=== PATIENT | male | born 1975 | race Caucasian/White ===

== ENCOUNTER 2025-06-26 17:24 | Emergency (ER) | payer BC, SELFPAY ==
[2025-06-26 17:30] VITALS: BP 147/101
[2025-06-26 17:44] LABS: Hematocrit 43.5 % (39.0-52.0); Hemoglobin 15.2 g/dL (13.0-18.0); Mean Corp Hgb Conc. 34.9 g/dL (33.0-37.0); Mean Corpuscular Volume 88.2 fL (80.0-94.0); Nucleated Red Blood Cells % 0 % (-); Platelet Count 249 10^3/uL (130-400); Red Cell Dist. Width 11.7 % (11.5-14.5)
[2025-06-26 18:09] LABS: ALT (SGPT) 31 U/L (0-50); AST (SGOT) 22 U/L (17-59); Albumin 4.6 g/dl (3.5-5.0); Alkaline Phosphatase 60 U/L (38-126); Blood Urea Nitrogen 20 mg/dl (9-20); Calcium 9.7 mg/dl (8.4-10.2); Carbon Dioxide 27 mmol/L (22-30); Chloride 103 mmol/L (98-107); Glucose 102 mg/dl (70-99); Potassium 4.6 mmol/L (3.5-5.1); Sodium 140 mmol/L (135-145); Total Protein 7.5 g/dl (6.3-8.2); eGFR > 60.00
--- NOTE | 2025-06-26 19:17 | ED.GENMED ---
History of Present Illness
General
Chief Complaint: Anal/Rectal Problem
Source: patient
Exam Limitations: none
Time Seen by Provider: 06/26/25 19:02
History of Present Illness
History of Present Illness:
50yoM with a history of asthma presenting with his for evaluation of rectal pain. Symptoms have been ongoing for about a week and a half. He states he strained and felt a sharp pain in his rectal area. He then noticed a lump and swelling.
He was seen at urgent care last week and was started on a 5-day course of prednisone. He did notice some relief in pain while on the steroid. Last dose was yesterday. Symptoms became worse again today so he decided to come to the ED. He is able
to have bowel movements but is slightly constipated. He denies any fevers or chills. No rectal bleeding or drainage. No history of diabetes.
Past History
Past History
ED Past Medical History: Other ( Borderline Blood sugars, prostatitis, asthma)
Social History
Tobacco: Former smoker
Alcohol: Occasional
Family History
Family History: Diabetes
Phy Exam
General Physical Exam
General Presentation: well appearing and no apparent distress
General Skin: warm and dry
General Habitus: normal
General Mental: alert
ENT Exam
ENT Exam: normocephalic
Pulmonary Exam
Pulmonary Exam: no respiratory distress
Gastrointestinal Exam
Rectal Exam: other (Approx 4cm area of fluctuance, erythema, and tenderness to the L perirectal area. No signs of surrounding cellulitis. No crepitus or pain out of proportion. )
Neurological Exam
Neurological Exam: alert
Barling Coma Scale
Eye Opening: Spontaneous
Verbal Response: Oriented
Motor Response: Obeys Commands
GCS Total Score: 15
Skin Exam
Skin Exam: normal color and warm/dry
Psychiatric Exam
Psychiatric Exam: normal mood/affect
Course
Orders/Labs/Results
Orders:
Orders
06/26/25 17:37
CMP [Comprehensive Metabolic Panel] Urgent
Complete Blood Count/With Diff Urgent
06/26/25 19:15
HYDROmorphone [Dilaudid] 1 mg IV NOW STA
Ketorolac [Toradol] 15 mg IV NOW STA
06/26/25 20:02
Amoxicillin 875 mg/Clav 125 mg [Augmentin 875 mg/125 mg] 1 tablet PO NOW STA
Abnormal Lab Results
06/26/25
17:37
WBC 13.3 H 10^3/uL
(4.8-10.8)
Absolute Neuts (auto) 9.7 H 10^3/uL
(1.4-6.5)
Absolute Monos (auto) 1.4 H 10^3/uL
(0.1-0.6)
Lymphocytes % 15.0 L %
(20.5-51.1)
Monocytes % 10.2 H %
(1.7-9.3)
Glucose 102 H mg/dl
(70-99)
06/26/25 17:37
06/26/25 17:37
Vital Signs
Initial and Last Documented VS:
Initial Vital Signs
Temp Pulse Resp BP Pulse Ox
98.5 F 93 18 147/101 98
06/26/25 17:30 06/26/25 17:30 06/26/25 17:30 06/26/25 17:30 06/26/25 17:30
Last Documented Vital Signs
Temp Pulse Resp BP Pulse Ox
98.5 F 93 18 147/101 98
06/26/25 17:30 06/26/25 17:30 06/26/25 17:30 06/26/25 17:30 06/26/25 19:18
Procedures
Incision/Drainage/Joint Aspiration
Left Buttock:
Anethesia: 1% Lidocaine with Epi
Preparation: cleaned with Betadine
Type of procedure: incise and drain
Nature of site: abscess
Description of abscess: greater than 3cm
Loculations broken up: Yes
How much fluid was obtained?: large amount
Fluid description: purulent
Treatment: packed with gauze and antibiotics started
MDM/Problems Addressed
Differential Diagnosis Includes:
50yoM here with rectal pain and lump x 1.5 weeks. No f/c or systemic symptoms. He is mildly hypertensive which is likely related to pain. Vitals otherwise stable. There is an area of fluctuance to the L perirectal area consistent with an abscess. No
signs of surrounding cellulitis or NSTI.
Labs obtained in triage. White count is 13.3 which may be at least partially related to recent prednisone course. I&D performed at bedside and large amount of purulence drained. Packing placed. Patient tolerated well without immediate complication.
He was started on a course of Augmentin. He was advised to remove packing in 48 hours and f/u with PCP and colorectal surgery. ED return precautions reviewed and he was discharged in stable condition.
*Pulse Oximetry
SaO2: 98
Oxygen Mode of Delivery: Room air
Patient hypoxic: no (98%)
*Critical Care Note
Total Time (30-74mins, 75-104mins- exclusive of procedures): Not Applicable
ED Attending Note
-
Portions of this chart may have been created with voice recognition software.� Occasional wrong word or��sound alike� substitutions may have occurred due to the inherent limitations of voice recognition software.
Discharge Plan
Departure
Patient Disposition: Home (Routine Discharge)
Date of Disposition: 06/26/25
Time of Disposition: 20:03
Patient with high blood pressure during this ER visit?: Yes
Discharge Problem:
Perirectal abscess
Instructions: Abscess incision and drainage - ED discharge instructions
Prescriptions:
New
amoxicillin-pot clavulanate 875-125 mg tablet
1 tab PO BID Qty: 13 0RF
No Action
ciprofloxacin HCl [Cipro] 500 MG tablet
500 mg PO BID
Referrals:
Jj Irving MD [Active, ColoRectal]
Duong White DO [Family Provider, Internal Medicine]
Activity Restrictions/Additional Instructions:
Take antibiotics as prescribed. Remove packing in 48 hours.
Please follow-up with your family doctor and colorectal surgery. Return to the ER with any worsening symptoms including fevers or chills.
Interventions
Interventions:
*Risk Screen - Suicide Last Done: 06/26/25 17:30
*General Assessment Last Done: 06/26/25 17:30
*Neglect/Abuse Screening Last Done: 06/26/25 17:30
*ED- Fall Risk Assessment Last Done: 06/26/25 17:30
*ED COVID-19 Vaccine History Last Done: 06/26/25 17:30
*Nursing Disposition Last Done: 06/26/25 20:12
FE-Pmfktl-Kchirfqizo Assessment Last Done: 06/26/25 19:34
ED-Skin Assessment Last Done: 06/26/25 19:34
Discharge Date and Time
Discharge Date/Time: 06/26/25 20:15
Print Language: MALAWIAN
[2025-06-26] MEDS: TORADOL 15 MG IV (19:23)
[2025-06-26] MEDS: DILAUDID 1 MG IV (19:24)
[2025-06-26 19:26] VITALS: BMI 31.9
[2025-06-26] MEDS: AUGMENTIN 875 MG/125 MG 1 TABLET PO (20:09)
== END 2025-06-26 20:15 | disposition home or self-care (01) ==
LOC: EMR 17:24
PROVIDERS: Emergency Medicine; EMERGENCY PHYSICIAN Emergency Medicine; FAMILY PHYSICIAN Internal Medicine
DX: K61.1 Rectal abscess (principal); K59.00 Constipation, unspecified; N41.9 Inflammatory disease of prostate, unspecified; J45.909 Unspecified asthma, uncomplicated; Z83.3 Family history of diabetes mellitus; Z87.891 Personal history of nicotine dependence
CPT/HCPCS: 99283; 10060; 96374; 96375; 80053; 85025

== ENCOUNTER 2025-09-03 15:34 | Emergency (ER) | payer BC, SELFPAY ==
[2025-09-03 15:58] VITALS: BP 118/87
[2025-09-03 16:00] VITALS: BP 127/91
[2025-09-03 16:05] VITALS: BP 127/94
[2025-09-03 16:22] VITALS: BMI 33.9
[2025-09-03 16:31] LABS: Hematocrit 39.9 % (39.0-52.0); Hemoglobin 14.2 g/dL (13.0-18.0); Mean Corp Hgb Conc. 35.6 g/dL (33.0-37.0); Mean Corpuscular Volume 85.4 fL (80.0-94.0); Nucleated Red Blood Cells % 0 % (-); Platelet Count 189 10^3/uL (130-400); Red Cell Dist. Width 12.0 % (11.5-14.5)
--- NOTE | 2025-09-03 16:41 | ED.GENMED ---
History of Present Illness
General
Chief Complaint: Blood Pressure Problem
Source: patient
Exam Limitations: none
Time Seen by Provider: 09/03/25 16:06
Nursing documentation reviewed up to this point in time: agreed with
History of Present Illness
History of Present Illness:
50-year-old male presents to the ER for evaluation. Patient has had elevated blood pressure recently. He reports he is under a lot of stress. About a week and a half ago he had a sudden in the family. He reports he has felt that his blood
pressure has been elevated recently and he can physically feel the symptoms. He feels his ears getting hot and his face gets flushed. Prior to arrival he was at dermatology office and his face was flushed his blood pressure was elevated he was
recommended to come to the ER. He has checked his blood pressure recently and has been around 130s over 90s to 140s over 90s. Patient reports because of recent stress he has been drinking almost every night for the past 2 weeks beers and at times
shots. Patient reported 3 days ago he had chest tightness while lying in bed at nighttime. He was able to sleep with that and it resolved however he has felt intermittent chest tightness. Today while walking at work he did feel some shortness of
breath with going up the steps. He denies any headache blurry vision
He has a history of borderline high cholesterol however it is always been diet controlled.
He does report he had a stress test several years ago which was negative.
Past History
Past History
ED Past Medical History: Other ( Borderline Blood sugars, prostatitis, asthma)
Social History
Tobacco: Former smoker
Alcohol: Occasional
Family History
Family History: Diabetes
Phy Exam
General Physical Exam
General Presentation: no apparent distress
General age: appears stated age
General Skin: warm and dry
General Habitus: normal
General Mental: alert
General Hydration: appears well hydrated
Cardiovascular Exam
Cardiovascular Exam: regular rate/rhythm, no murmur and normal peripheral pulses
Pulmonary Exam
Pulmonary Exam: lungs clear and no respiratory distress
Neurological Exam
Neurological Exam: alert and oriented x3
Musculoskeletal Exam
Musculoskeletal Exam: full ROM
Skin Exam
Skin Exam: normal color and warm/dry
Psychiatric Exam
Psychiatric Exam: normal mood/affect
Course
Orders/Labs/Results
Orders:
Orders
09/03/25 15:36
Electrocardiogram (*1) Urgent
Reason for Study: Hypertension, Benign
EKG- Treatment ONCE
09/03/25 15:42
EKG [Electrocardiogram (*1)] Urgent
Reason for Study: Hypertension, Benign
EKG- Treatment ONCE
09/03/25 16:21
BNP [NT-proBNP] Urgent
Complete Blood Count/With Diff Urgent
Comprehensive Metabolic Panel Urgent
Troponin I Urgent
09/03/25 17:17
EKG- Treatment ONCE
09/03/25 19:20
Electrocardiogram (*1) Urgent
Reason for Study: Palpitations
09/03/25 19:42
Troponin I Urgent
09/03/25 20:51
Chest [CR Chest - 2 Views ] Urgent
Comment:
Reason For Exam: cp
Abnormal Lab Results
09/03/25
16:21
RBC 4.67 L 10^6/uL
(4.70-6.10)
Monocytes % 10.6 H %
(1.7-9.3)
Glucose 109 H mg/dl
(70-99)
09/03/25 16:21
09/03/25 16:21
Vital Signs
Initial and Last Documented VS:
Initial Vital Signs
BP
118/87
09/03/25 15:58
Last Documented Vital Signs
Temp Pulse Resp BP Pulse Ox
98.4 F 76 18 154/97 95
09/03/25 19:45 09/03/25 19:45 09/03/25 19:45 09/03/25 19:45 09/03/25 19:45
MDM/Problems Addressed
Differential Diagnosis Includes:
Not limited to elevated blood pressure, less likely ACS
MDM/Problems Addressed:
As documented patient is a 50-year-old male that was sent to the ER for evaluation of elevated blood pressure. 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
Intermittently patient has noted some intermittent chest tightness over the past several nights. He is under a lot of stress with a recent in the family. He does report he has been eating a lot of high salt fast food. Patient presents to
the ER awake alert asymptomatic in no distress. No acute findings on EKG and initial troponin was negative. Patient was monitored and remained asymptomatic though his blood pressure was mildly elevated. His second troponin is negative. His lungs
are clear his x-ray is negative
Will place patient on chest pain hotline.
I did review following a low-salt diet. He also admits to using Zyns (nicotine) I did recommend that patient stop this as this may also raise blood pressure.
He is stable for discharge home with outpatient cardiology follow-up
*Radiology
Radiology exam reviewed: radiology read reviewed
*Pulse Oximetry
SaO2: 97
Oxygen Mode of Delivery: Room air
Patient hypoxic: no
*EKG
Interpreted by ED Provider?: Yes
Heart Rate: 68
Rate: normal
Rhythm: sinus
Ischemia: no ischemia
*Critical Care Note
Total Time (30-74mins, 75-104mins- exclusive of procedures): Not Applicable
ED Attending Note
-
Portions of this chart may have been created with voice recognition software.� Occasional wrong word or��sound alike� substitutions may have occurred due to the inherent limitations of voice recognition software.
Discharge Plan
Departure
Patient Disposition: Home (Routine Discharge)
Date of Disposition: 09/03/25
Time of Disposition: 21:41
Patient with high blood pressure during this ER visit?: Yes
Condition: Fair
Covid-19: Not Applicable
Discharge Problem:
Chest pain
Instructions: High Blood Pressure (DC), Chest Pain CBC Follow Up, BLOOD PRESSURE
Prescriptions:
No Action
ciprofloxacin HCl [Cipro] 500 MG tablet
500 mg PO BID
amoxicillin-pot clavulanate 875-125 mg tablet
1 tab PO BID Qty: 13 0RF
Referrals:
Taiwo Kapadia MD [Active, Cardiology]
Duong White DO [Family Provider, Internal Medicine]
Activity Restrictions/Additional Instructions:
As discussed you are placed on chest pain hotline. You should receive a phone call from the office in the next 1 to 2 days if you do not please give the office that a call to schedule an appointment as soon as possible. Your blood pressure is
elevated and will need to be reevaluated by your family doctor and cardiology .in the meantime please follow a low salt diet, discontinue the use of Zyns. Return if any woresning of symptoms.
Interventions
Interventions:
*Risk Screen - Suicide Last Done: 09/03/25 15:41
*General Assessment Last Done: 09/03/25 15:41
*Neglect/Abuse Screening Last Done: 09/03/25 15:41
*ED COVID-19 Vaccine History Last Done: 09/03/25 15:41
*ED Influenza Vaccine History Last Done: 09/03/25 15:41
ED- Cardiac Assessment Last Done: 09/03/25 19:45
ED- Neurological Assessment Last Done: 09/03/25 19:45
ED- Pulmonary Assessment Last Done: 09/03/25 19:45
Discharge Date and Time
Print Language: LAO
[2025-09-03 16:51] LABS: ALT (SGPT) 34 U/L (0-50); AST (SGOT) 26 U/L (17-59); Albumin 4.2 g/dl (3.5-5.0); Alkaline Phosphatase 47 U/L (38-126); Blood Urea Nitrogen 17 mg/dl (9-20); Calcium 9.3 mg/dl (8.4-10.2); Carbon Dioxide 27 mmol/L (22-30); Chloride 105 mmol/L (98-107); Estimated Creatinine Clearance > 125 ml/min; Glucose 109 mg/dl (70-99); Potassium 4.1 mmol/L (3.5-5.1); Sodium 137 mmol/L (135-145); Total Protein 7.0 g/dl (6.3-8.2); eGFR > 60.00
[2025-09-03 16:56] LABS: Troponin I < 0.012 ng/ml
[2025-09-03 19:45] VITALS: BP 154/97
[2025-09-03 20:27] LABS: Troponin I < 0.012 ng/ml
[2025-09-03 22:16] VITALS: BP 145/103
== END 2025-09-03 22:17 | disposition home or self-care (01) ==
LOC: EMR 15:34
PROVIDERS: Nurse Practitioner; EMERGENCY PHYSICIAN Emergency Medicine; FAMILY PHYSICIAN Internal Medicine
DX: R07.89 Other chest pain (principal); R03.0 Elevated blood-pressure reading, without diagnosis of hypertension; J45.909 Unspecified asthma, uncomplicated; Z72.0 Tobacco use; F10.10 Alcohol abuse, uncomplicated; Z63.4 Disappearance and death of family member
CPT/HCPCS: 99285; 71046; 80053; 83880; 84484; 85025; 93005

== ENCOUNTER → 2025-09-23 14:28 | Outpatient (REF) | payer BC, SELFPAY | LOC: RCS 14:28 | PROVIDERS: ATTENDING PHYSICIAN Internal Medicine Cardiovascular Disease; FAMILY PHYSICIAN Internal Medicine | DX: R07.9 Chest pain, unspecified (principal) | CPT/HCPCS: 93017 ==

== ENCOUNTER → 2025-09-25 13:53 | Outpatient (REF) | payer BC, SELFPAY | LOC: HWRCS 13:53 | PROVIDERS: ATTENDING PHYSICIAN Internal Medicine Cardiovascular Disease; FAMILY PHYSICIAN Internal Medicine | DX: R07.9 Chest pain, unspecified (principal); R03.0 Elevated blood-pressure reading, without diagnosis of hypertension | CPT/HCPCS: 93306 ==